=== PATIENT | male | born 1955 ===

== ENCOUNTER 2018-07-30 12:37 | Day surgery (SDC) | payer OTHER ==
[2018-07-30] MEDS ORDERED: Midazolam 2 MG/2 ML VIAL ONE (13:21)
[2018-07-30] MEDS ORDERED: Iodixanol 320 MG/ML 100 ML BOTTLE IV ONE (14:18)
[2018-07-30 14:25] VITALS: BMI 50.4
[2018-07-30] MEDS ORDERED: Sodium Chloride 0.9% 500 ML IV SCH (14:30)
--- NOTE | 2018-07-31 07:37 | VAS ---
DATE: 07/30/2018 INDICATIONS: Mr. Ly is a 62-year-old male with history of hypertension, diabetes, peripheral vascular disease, who presented to [facility] with gangrene of his third toe. The patient underwent noninvasive evaluation with CTA, which showed high-grade disease in the distal aspect at the popliteal region, and therefore was brought to the greenhouse laborer for further evaluation and treatment. PROCEDURE PERFORMED: Distal abdominal aortogram with bilateral iliac runoff, selective bilateral iliofemoral angiogram with runoff, a 5-[place] left femoral artery access, and Mynx closure device for hemostasis. ANGIOGRAPHIC FINDINGS: Left lower extremity: Left common iliac and external iliac patent, SFA mild disease, distal vessel has 30% stenosis, popliteal artery patent, one-vessel runoff of anterior tibial artery, feeding the superficial plantar arch, which feeds the deep plantar arch via the collaterals. The patient's proximal AT in the left lower extremity has a moderate sized 60% to 70% stenosis. Right lower extremity, right common iliac, and external iliac patent, SFA profunda femoris patent, popliteal patent. 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 Two-vessel runoff below the knee, superficial plantar arch patent with collaterals of the deep plantar arch versus small vessel disease at the digital arches. IMPRESSION: Patent stent in the tibioperoneal trunk versus small vessel disease at the digital arches. RECOMMENDATIONS: Aggressive medical management and risk factor modification. The patient can be transferred back to [facility]. Umesh Chase MD
== END 2018-07-30 17:00 | disposition short-term general hospital (02) ==
LOC: C.CATHLAB 12:37
PROVIDERS: ATTEND Internal Medicine Interventional Cardiology
DX: I10 Essential (primary) hypertension (principal); I73.9 Peripheral vascular disease, unspecified
CPT/HCPCS: 36247; 75625; 75716; 75774; 82948; C1760; C1766; C1769; J1644; J2250; J3010; J7040; Q9967